=== PATIENT | male | born 1960 | race Caucasian/White ===

== ENCOUNTER 2020-12-20 13:02 | Outpatient (CLI) | payer OTHER, SELFPAY | END 2020-12-20 13:03 | disposition home or self-care (01) | LOC: ANHCOVIDVC 13:02 | PROVIDERS: PCP Internal Medicine | DX: Z23 Encounter for immunization (principal) | CPT/HCPCS: 0001A; 91300 ==

== ENCOUNTER 2021-01-10 12:56 | Outpatient (CLI) | payer OTHER, SELFPAY | END 2021-01-10 12:57 | disposition home or self-care (01) | LOC: ANHCOVIDVC 12:56 | PROVIDERS: PCP Internal Medicine | DX: Z23 Encounter for immunization (principal) | CPT/HCPCS: 0002A; 91300 ==

== ENCOUNTER → 2021-03-27 09:02 | Outpatient (CLI) | payer OTHER, SELFPAY ==
[2021-03-27 17:52] LABS: SARS-CoV-2 RNA PCR Negative
== END ==
PROVIDERS: PCP Internal Medicine; Visit Provider Internal Medicine
DX: R68.89 Other general symptoms and signs (principal); Z20.822 Contact with and (suspected) exposure to COVID-19
CPT/HCPCS: C9803; U0003; U0005

== ENCOUNTER 2022-05-22 13:29 | Emergency (ER) | payer OTHER, SELFPAY ==
[2022-05-22 14:02] VITALS: BP 143/88; PULSE 82; RESP 16; TEMP 36.6; O2SAT 98
--- NOTE | 2022-05-22 16:55 | ED.LOWEXIN ---
HPI - Extremity Injury (Lower) General Chief Complaint: Extremity Injury, Lower Stated Complaint: right hamstring pain Time Seen by Provider: 05/22/22 16:49 History of Present Illness HPI Narrative: 61-year-old male presents to the emergency room for evaluation of right lower extremity pain. Patient states he was gardening 4 days ago when he heard a pop in his hamstring. Woke up the next day and there was a significant amount of swelling and bruising to the back of his leg. Denies any joint instability or other injuries. Patient presents to the emergency room requesting an MRI to see the amount of damage done . Related Data Home Medications Medication Instructions Recorded Confirmed aspirin 81 mg tablet 81 mg PO DAILY 01/27/20 05/15/22 Allergies Allergy/AdvReac Type Severity Reaction Status Date / Time No Known Allergies Allergy Verified 05/22/22 14:04 Review of Systems Review of Systems: CONSTITUTIONAL: Denies fever, chills, or sweats. EYES: Denies visual changes, redness, or discharge. ENT: Denies rhinorrhea, congestion, sore throat, or otalgia. CARDIOVASCULAR: Denies chest pain, palpitations, or edema. RESPIRATORY: Denies cough or dyspnea. GASTROINTESTINAL: Denies abdominal pain, nausea, vomiting, or diarrhea. GENITOURINARY: Denies dysuria or hematuria. SKIN: Denies rash or itching. MUSCULOSKELETAL: Reports right leg pain NEUROLOGIC: Denies headache, numbness, dizziness, or weakness. PSYCHIATRIC: Denies anxiety or depression. [facility] Past Medical History Medical History Contracture of finger joint Hyperlipidemia Hypertension On residential drug therapy Swollen finger Type 2 diabetes mellitus with insulin therapy Surgical History Surgical History History of hernia repair Family History Family History Father Hypertension Family history of diabetes mellitus in first degree relative Family history of lymphoma Family history of coronary artery disease Family history of heart disease in male family member before age 55 Patient's father is Grandparent Hypertension Family history of lung cancer Family history of coronary artery disease Sibling Patient's sister is in good health Mother Family history of malignant neoplasm Patient's mother is Social History Social History Smoking status: Never smoker Alcohol intake: current Alcohol use details: occasionally Substance use: never Exam Narrative: GENERAL: Well-appearing, well-nourished, no physical limitations, and in no acute distress. HEAD: Normocephalic, atraumatic. EYES: Conjunctivae normal, PERRLA and EOMI. CHEST: Clear to auscultation. No respiratory distress. No wheezes rales or rhonchi. No tenderness. HEART: Regular rate and rhythm. No murmur heard. Normal peripheral pulses. EXTREMITIES: Right lower extremity: Ecchymosis noted to the posterior aspect of the upper right leg. Full range of motion of the hip and knee joints. No joint instability. Neurovascular is intact distally SKIN: Warm, dry, no rash. No noted wounds NEURO: No focal deficits. Alert and oriented x3. MAEW. CN's II-XI intact bilaterally, normal gait PSYCH: Cooperative. Normal mood and affect. Course Course Emergency Course: 1700: Patient refusing knee immobilizer. Vital Signs Vital signs: Vital Signs Temperature 36.6 C 05/22/22 14:02 Pulse Rate 82 05/22/22 14:02 Respiratory Rate 16 05/22/22 14:02 Blood Pressure 143/88 H 05/22/22 14:02 Pulse Oximetry 98 05/22/22 14:02 Temperature 36.6 C 05/22/22 14:02 Pulse Rate 82 05/22/22 14:02 Respiratory Rate 16 05/22/22 14:02 Blood Pressure 143/88 H 05/22/22 14:02 Pulse Oximetry 98 05/22/22 14:02 Discharge Plan Di
== END 2022-05-22 17:24 | disposition home or self-care (01) ==
LOC: ANHED 17:11
PROVIDERS: Emergency Provider Nurse Practitioner Family; PCP Internal Medicine
DX: S79.921A Unspecified injury of right thigh, initial encounter (principal); E78.5 Hyperlipidemia, unspecified; I10 Essential (primary) hypertension; E11.9 Type 2 diabetes mellitus without complications; Z79.4 Long term (current) use of insulin; Z79.82 Long term (current) use of aspirin; X50.9XXA Other and unspecified overexertion or strenuous movements or postures, initial encounter; Y93.H2 Activity, gardening and landscaping
CPT/HCPCS: 99282

== ENCOUNTER 2023-11-17 09:05 | Outpatient (CLI) | payer BC, SELFPAY ==
[2023-11-17 10:16] LABS: Anion Gap 6 mmol/L (8-16); Blood Urea Nitrogen 18 mg/dL (9-20); Calcium 9.4 mg/dL (8.4-10.2); Carbon Dioxide 25 mmol/L (22-30); Chloride 108 mmol/L (98-107); Estimated Glomerular Filt Rate > 60; Glucose 139 mg/dL (65-110); Potassium 4.2 mmol/L (3.4-5.0); Sodium 139 mmol/L (137-145)
== END 2023-11-17 09:06 | disposition home or self-care (01) ==
LOC: ANHSURGERY 09:09
PROVIDERS: Anesthesiology; PCP Nurse Practitioner; Visit Provider Plastic Surgery
DX: E11.9 Type 2 diabetes mellitus without complications (principal); Z79.4 Long term (current) use of insulin
CPT/HCPCS: 36415; 80048

== ENCOUNTER 2023-11-19 02:52 | Day surgery (SDC) | payer BC, SELFPAY ==
[2023-11-12 14:59] VITALS: BMI 28.0
--- NOTE | 2023-11-12 15:04 | PC.NURSE ---
Report to the Outpatient Waiting Room, entrance under the green pavilion located off [facility], at time 0645 on date 11/19/23. Planned Procedure Time: 0845. Time changes happen often and if your time is changed the preop area will call you the afternoon before. - You and your visitor will be asked to self-screen and do not enter if you have any COVID symptoms. - A mask is optional within the hospital at this time. - No food OR DRINK from midnight until time of surgery Take the following medications with a SIP of water the morning of surgery: NONE DO NOT STOP ANY OF YOUR OTHER PRESCRIPTION MEDICATIONS PRIOR TO SURGERY ?EXCEPT THE FOLLOWING Medications to discontinue per physician: ASPIRIN Date to take last dose: PER DR. TORRES Please no make-up, nail pashto, hairspray, perfume, deodorant, or body powder the day of surgery. No jewelry (including any body piercings) or valuables the day of surgery, leave them at home. Please take a shower or bath the night before, or the morning of, surgery with an antibacterial soap. Wear comfortable, loose fitting clothing. - Jewelry must be removed prior to entering the operating room. Rings and piercings that are not removed may be cut off. - The hospital will not accept responsibility for valuables. - Please leave all valuables, including medications, at home the day of surgery. If you are going home after surgery, a licensed bottom hoop driver must drive you home. - NO public transportation without another adult if you receive anesthesia. - We recommend that an adult stay with you for 24 hours following discharge. - We also recommend that you do not drive, make important decision, drink alcoholic beverages, or take any drugs that were not prescribed by your health care provider for at least 24 hours after your discharge time. Follow any additional instructions given to you from your surgeon. If you or anyone in your household have experienced Covid symptoms in the past week, please notify your surgeon or the nurse liaison at the phone number below for possible testing. Telephone instructions given to PT - VALERIA VENEGAS and asked if any additional questions and then verbalized understanding. Patient advised to call surgeon office or pre surgery nurse liaison [phone] if any additional questions.
[2023-11-19 06:45] VITALS: BP 143/84; PULSE 68; TEMP 36.4; O2SAT 96
--- NOTE | 2023-11-19 07:14 | PM.HPGS ---
History of Present Illness History of Present Illness Chief complaint: Right Dupuytren's Contracture Narrative: Patient seen and examined in pre-operative holding area. No interval change in medical history or symptoms other than noting slight increase in palmar cord proximal to small finger. Patient recalls previous discussion of benefits and alternatives to procedure. Continues to desire to proceed with right ring finger fasciectomy and right small finger palmar fasciectomy. Reviewed procedure, post-op expectations and risks including but not limited to bleeding, infection, injury to tendon/nerve/vessel, decreased hand function, stiffness, RSD, no change or worsening of symptoms, recurrence, incomplete release. I discussed the possible use of assistants and their participation in the case. Patient stated understanding and signed the consent form wishing to proceed. Review of Systems Review of Systems: All systems reviewed & are unremarkable except as noted in HPI and below PMFSH Past Medical History Medical History Contracture of finger joint COVID-19 2022 Hyperlipidemia Hypertension On terminal makeup operator drug therapy Swollen finger Type 2 diabetes mellitus with insulin therapy Surgical History Surgical History History of hernia repair Family History Family History Father Hypertension Family history of diabetes mellitus in first degree relative Family history of lymphoma Family history of coronary artery disease Family history of heart disease in male family member before age 55 Patient's father is Grandparent Hypertension Family history of lung cancer Family history of coronary artery disease Sibling Patient's sister is in good health Mother Family history of malignant neoplasm Patient's mother is Social History Social History Smoking status: Never smoker Alcohol intake: current Drinks per week: 4 Alcohol use details: occasionally Substance use: never Substance use type: does not use Lack of Transportation: No Lack of Food: Never True Current Housing: I Have Housing Concerned About Future Housing: No Difficulty Paying Gas/Electric Bills: No Difficulty Paying for Meds: No Currently Unemployed: No Education: Bachelor's Degree Difficulty w/ Childcare or Family Care: No Living arrangements: with family Spiritual care concerns: No Meds Home Medications and Allergies Home Medications Medication Instructions Recorded Confirmed Type aspirin 81 mg tablet 81 mg PO DAILY 01/27/20 11/19/23 History pen needle, diabetic 32 gauge x #100 ea 02/14/22 11/12/23 Rx 1/4 (BD Ultra-Fine Micro Pen Needle) lisinopril 20 mg tablet 20 mg PO DAILY #90 tabs 05/30/23 11/19/23 Rx simvastatin 20 mg tablet See Rx Instructions .Route 06/02/23 11/19/23 Rx .COMPLEX #90 tabs metformin 500 mg tablet See Rx Instructions .Route 06/23/23 11/19/23 Rx .COMPLEX #360 tabs empagliflozin 10 mg tablet 10 mg PO DAILY #90 tabs 10/27/23 11/19/23 Rx (Jardiance) tirzepatide 2.5 mg/0.5 mL 2.5 mg (0.5 mL) subcut WEEKLY 4 11/12/23 11/19/23 Rx subcutaneous pen injector weeks #2 mL (Mounjaro) tirzepatide 5 mg/0.5 mL 5 mg (0.5 mL) subcut WEEKLY #2 mL 11/12/23 11/19/23 Rx subcutaneous pen injector (Mounjaro) insulin glargine 100 unit/mL (3 39 unit subcut BID 11/19/23 11/19/23 History mL) subcutaneous pen (Lantus Solostar U-100 Insulin) tramadol 50 mg tablet 50 mg PO Q6H PRN pain #12 tabs 11/19/23 Rx Allergies Allergy/AdvReac Type Severity Reaction Status Date / Time No Known Allergies Allergy Verified 11/19/23 07:01 Vital Signs Vital Signs - 24 hr 11/19/23 06:45 Temperature 36.4 C L Pulse Rate 6
--- NOTE | 2023-11-19 07:15 | W.PM.PROC2 ---
Procedure Note - Detailed Date of Procedure 11/19/23 Pre-op Diagnosis Right ring finger Dupuytren's Contracture and small finger palmar contracture Post-op Diagnosis Same Procedure Performed right ring finger fasciectomy and right small finger palmar fasciectomy Surgeon Leonides Toledo MD Knitting Machine Mechanic Zabrina Loyd PA-C Anesthesia MAC Description of Procedure INFORMED CONSENT: The patient was seen and examined and marked in the pre-op area.? The patient signed the consent form. PROCEDURE IN DETAIL:The patient taken back to OR on the stretcher in supine position. Time out performed with anesthesia, surgeon and staff agreeing on patient's name site and surgery to be performed SCDs were placed on the lower extremities and inflated. A tourniquet was placed on {right} upper extremity and antibiotics given IV After anesthesia administered sedation I injected {6}cc 1%lido and 0.5% marcaine plain at the operative site The?{right upper extremity}?was prepped and draped in sterile fashion the??{right upper extremity} was? exsanguinated with Esmarch bandage and tourniquet inflated to 250mmHg I proceeded with making a longitudinal incision over right ring finger palmar cord through skin and dermis with 15 blade scalpel. I identified and dissected circumferentially around the cord proximally and transected it. I proceeded with anterograde dissection of the cord distally until I was able to achive full extension of the ring finger mpjoint. I irrigated with normal saline and closed wtih 4-0 chromic making z-plastys across the flexion creases. I made an oblizue incision over right ring finger p1 nodule through skin and dermis and proceeded with circumferential dissection around this isolated dupuytren's nodule. I irrigated with normal saline and closued with 4-0 chromic. I next proceeded with making a longitudinal incision over the palmar cord around distal palmar crease proximal to the small finger through skin and dermis, raising skin flaps and identifying the cord. I dissected around the cord proximally with littler scissors and transected the cord proximally and proceeded with anterorgrade dissection and resection of the cord improving the extensibility of right palmar crease. I irrigated with normal saline, constructed z-plasty across crease and close with 4-0 chromic. A dressing of xeroform, 4x4, neha, and an ulnar gutter splint with fingers in straight postiion was applied for patient safety, security, and comfort and secured with an delfina bandage after the tourniquet was let down noting the hand was warm and well perfused. The patient was then awaken from anesthesia and transferred to the recovery room in stable condition.? Complications - none EBL- 0cc Disposition - home in stable conditions Zabrina Loyd PA-C was essential for positioining,retraction, closure and dressing placement G Billing Surgery - Charge Forward: Surgery Billing ([id number] and [id number] same for zabrina adding modifier )
--- NOTE | 2023-11-19 07:30 | WPDANESEPPF ---
Anes - Initial Pre Proc Eval Procedure: Operation Date: 11/19/23 08:45 Proposed Procedures p Right Ring Finger Fasciectomy - Leonides Toledo MD Date/Time: 11/19/23 07:30 Surgeon: Leonides Toledo MD Pre Op Diagnosis: Right Dupuytren's Contracture Patient Data Age: 63 Gender: M Height: 1.94 m Weight: 106.7 kg Last Vital Signs Temp 36.4 C L 11/19/23 06:45 Pulse 68 11/19/23 06:45 BP 143/84 H 11/19/23 06:45 Pulse Ox 96 11/19/23 06:45 O2 Del Method Room Air 11/19/23 06:45 Allergies Allergy/AdvReac Type Severity Reaction Status Date / Time No Known Allergies Allergy Verified 11/19/23 07:01 Home Medications Medication Instructions Recorded Confirmed Type aspirin 81 mg tablet 81 mg PO DAILY 01/27/20 11/19/23 History pen needle, diabetic 32 gauge x #100 ea 02/14/22 11/12/23 Rx 1/4 (BD Ultra-Fine Micro Pen Needle) lisinopril 20 mg tablet 20 mg PO DAILY #90 tabs 05/30/23 11/19/23 Rx simvastatin 20 mg tablet See Rx Instructions .Route 06/02/23 11/19/23 Rx .COMPLEX #90 tabs metformin 500 mg tablet See Rx Instructions .Route 06/23/23 11/19/23 Rx .COMPLEX #360 tabs empagliflozin 10 mg tablet 10 mg PO DAILY #90 tabs 10/27/23 11/19/23 Rx (Jardiance) tirzepatide 2.5 mg/0.5 mL 2.5 mg (0.5 mL) subcut WEEKLY 4 11/12/23 11/19/23 Rx subcutaneous pen injector weeks #2 mL (Mounjaro) tirzepatide 5 mg/0.5 mL 5 mg (0.5 mL) subcut WEEKLY #2 mL 11/12/23 11/19/23 Rx subcutaneous pen injector (Mounjaro) insulin glargine 100 unit/mL (3 39 unit subcut BID 11/19/23 11/19/23 History mL) subcutaneous pen (Lantus Solostar U-100 Insulin) Patient hx anesthesia problems: none Family hx anesthesia problems: none Results Review: All pre-operative results and documents have been reviewed as part of the pre-operative evaluation. COUNT INCLUDES THE [facility] Past Medical History Medical History Contracture of finger joint COVID-19 2022 Hyperlipidemia Hypertension On marine oil terminal superintendent drug therapy Swollen finger Type 2 diabetes mellitus with insulin therapy Surgical History Surgical History History of hernia repair Family History Family History Father Hypertension Family history of diabetes mellitus in first degree relative Family history of lymphoma Family history of coronary artery disease Family history of heart disease in male family member before age 55 Patient's father is Grandparent Hypertension Family history of lung cancer Family history of coronary artery disease Sibling Patient's sister is in good health Mother Family history of malignant neoplasm Patient's mother is Social History Social History Smoking status: Never smoker Alcohol intake: current Drinks per week: 4 Alcohol use details: occasionally Substance use: never Substance use type: does not use Lack of Transportation: No Lack of Food: Never True Current Housing: I Have Housing Concerned About Future Housing: No Difficulty Paying Gas/Electric Bills: No Difficulty Paying for Meds: No Currently Unemployed: No Education: Bachelor's Degree Difficulty w/ Childcare or Family Care: No Living arrangements: with family Spiritual care concerns: No Anes - Eval Final PreProcedure Day of Procedure 11/19/23 07:30 Patient weight: overweight Heart: regular rate and rhythm Lungs: clear to auscultation Airway: Mallampati scale class III Neurological: alert and oriented Last oral intake: >/= 8 hours ASA classification: III Emergent: no Anesthetic plan: proceed Anesthesia type and monitoring: general GIVS and standard monitoring Results Review: All pre-operative results and documents have been review
[2023-11-19 07:49] LABS: Glucose Point of Care 115 mg/dl (65-105)
[2023-11-19] MEDS: LACTATED RINGERS 1,000 ML 30 ML IV CONT (07:52)
[2023-11-19] MEDS: ceFAZolin 2 GM/D5W 50 ML 2 GM/50 ML BAG IVPB (08:35)
[2023-11-19] MEDS: LIDOCAINE 1% BUFFERED WITH 8.4% SODIUM BICARB 1 ML SYRINGE 10 ML INFILTRATE (08:42)
[2023-11-19 09:08] VITALS: BP 118/70; PULSE 80; RESP 16; O2SAT 97
[2023-11-19 09:17] LABS: Glucose Point of Care 120 mg/dl (65-105)
[2023-11-19 09:30] VITALS: BP 132/86; PULSE 62; RESP 16; O2SAT 97
[2023-11-19] MEDS: oxyCODONE HCL (*CRX) 5 MG TAB IR PO (09:34)
[2023-11-19] MEDS: fentaNYL CITRATE INJ (*CRX) 100 MCG/2 ML VIAL 25 MCG IV PUSH ×2 (09:58→10:05)
[2023-11-19 10:00] VITALS: BP 126/79; PULSE 62; RESP 16; O2SAT 97
[2023-11-19] MEDS: KETOROLAC 15 MG/ML VIAL (*BKC) IV PUSH (10:15)
[2023-11-19 10:30] VITALS: BP 138/76; PULSE 68; RESP 16
== END 2023-11-19 10:36 | disposition home or self-care (01) ==
PROVIDERS: PCP Nurse Practitioner; Visit Provider Plastic Surgery
PROC: (CPT 26045; principal; 2023-11-19 08:45)
DX: M72.0 Palmar fascial fibromatosis [Dupuytren] (principal); I10 Essential (primary) hypertension; E78.5 Hyperlipidemia, unspecified; E11.9 Type 2 diabetes mellitus without complications; Z79.82 Long term (current) use of aspirin; Z79.84 Long term (current) use of oral hypoglycemic drugs; Z79.85 Long-term (current) use of injectable non-insulin antidiabetic drugs; Z79.4 Long term (current) use of insulin
CPT/HCPCS: 26123; 26125; 82948; 88305; A9270; J0690; J1885; J2405; J2704; J3010; J7120